=== PATIENT | female | born 1955 | race Caucasian/White ===

== ENCOUNTER 2019-03-30 07:36 | Day surgery (SDC) | payer MEDICARE, OTHER ==
[~2019-03-30] VITALS: Ht 167.6 cm; Wt 84.5 kg
[~2019-03-30 07:36] MED LIST: ACID REDUCER 1150 MG PO; AMIT10 PO; AZELASTINE137 MCG/0.; ESCI10 PO; GABA100 PO; HYDR1TAB94 PO; LEVSOD150 PO; PROM25 PO; SOMA350 MG PO; TRAM50 PO
== END 2019-03-30 10:48 | disposition home or self-care (01) ==
LOC: ORSCSDS 07:36
PROVIDERS: Otolaryngology
PROC: 08QRXZZ Repair Left Lower Eyelid, External Approach (ICD-10-PCS; principal; 2019-03-30 09:00)
DX: G51.0 Bell's palsy (principal); E03.9 Hypothyroidism, unspecified; M79.7 Fibromyalgia; Z79.899 Other long term (current) drug therapy
CPT/HCPCS: A9270-GY; J1100; J2250; J3010; J7120

== ENCOUNTER → 2021-01-14 | Outpatient (CLI) | payer MEDICARE, OTHER | END | disposition home or self-care (01) | LOC: LAB SHORT 11:27 | DX: D48.5 Neoplasm of uncertain behavior of skin (principal) | CPT/HCPCS: 88305 ==

== ENCOUNTER 2021-02-06 08:02 | Day surgery (SDC) | payer MEDICARE, OTHER ==
[~2021-02-06] VITALS: Ht 170.2 cm; Wt 78.7 kg
[2021-02-06] MEDS ORDERED: AMIT25 PO (08:20)
[2021-02-06] MEDS ORDERED: FAMO10 PO (08:21)
[2021-02-06] MEDS ORDERED: LEVSOD100 PO (08:21)
--- NOTE | 2021-02-06 08:34 | NUR ---
02/06/21 0834 Sivan Ríos CALL LIGHT WITHIN REACH
--- NOTE | 2021-02-06 10:05 | NUR ---
02/06/21 1005 CHAN ONEAL LUNGS CLEAR T/O GAUZE APPLIED OVER LEFT EYE- EYE CLOSED FIRST, THEN SECURED IN PLACE. THIS WAS PER DR. Brar PT IS UNABLE TO CLOSE HER EYE. CONFIRMED WITH THAT SHE IS ALLOWED TO APPLY OINTMENT INTO HER LEFT EYE TODAY AFTER HERE DROPS ARE INSERTED.
== END 2021-02-06 09:54 | disposition home or self-care (01) ==
LOC: ORSCSDS 08:02
PROVIDERS: Ophthalmology
PROC: 08RK3JZ Replacement of Left Lens with Synthetic Substitute, Percutaneous Approach (ICD-10-PCS; principal; 2021-02-06 09:15)
DX: H25.12 Age-related nuclear cataract, left eye (principal); F41.8 Other specified anxiety disorders; Z79.899 Other long term (current) drug therapy
CPT/HCPCS: J2001; J2250; J3010; J3301; J7040; V2632

== ENCOUNTER 2021-07-10 08:13 | Emergency (ER) | payer MEDICARE, OTHER ==
[~2021-07-10] VITALS: Ht 170.2 cm; Wt 78.0 kg
[~2021-07-10 08:13] MED LIST changes: +AMIT25 PO; +FAMO10 PO; +LEVSOD100 PO
[2021-07-10 08:44] LABS: BASOPHILS ABSOLUTE AUTO 0.04 K/mm3 (0.00-0.23); BASOPHILS PERCENT AUTO 2 % (0-2); EOSINOPHILS ABSOLUTE AUTO 0.28 K/mm3 (0.00-0.68); EOSINOPHILS PERCENT AUTO 11 % (0-6); Hematocrit 38.2 % (33.0-51.0); Hemoglobin 12.2 g/dL (11.5-16.0); IMMATURE GRAN PERCENT AUTO 0 % (0-1); LYMPHOCYTES ABSOLUTE AUTO 1.12 K/mm3 (0.84-5.20); LYMPHOCYTES PERCENT AUTO 43 % (21-46); MONOCYTES ABSOLUTE AUTO 0.36 K/mm3 (0.16-1.47); MONOCYTES PERCENT AUTO 14 % (4-13); Mean Corpuscular HGB 28.1 pg (26.0-34.0); Mean Corpuscular HGB Conc 31.9 g/dL (31.5-36.5); Mean Corpuscular Volume 88 fL (80-100); Mean Platelet Volume 10.5 fL (9.1-12.4); NEUTROPHILS ABSOLUTE AUTO 0.81 K/mm3 (1.96-9.15); NEUTROPHILS PERCENT AUTO 31 % (41-73); Platelet Count 211 K/mm3 (150-400); RDW Coefficient Variation 13.3 % (11.7-14.2); RDW Standard Deviation 42.9 fL (35.1-46.3); Red Blood Cell Count 4.34 M/mm3 (3.80-5.20); White Blood Cell Count 2.61 K/mm3 (4.00-11.30)
[2021-07-10 09:37] LABS: Alanine Aminotransfer (ALT/SGP 26 U/L (12-78); Albumin, Blood 3.4 g/dL (3.4-5.0); Albumin/Globulin Ratio 0.9 (0.8-1.8); Alk Phos 115 U/L (50-136); Anion Gap 5 mmol/L (6-16); Aspartate Aminotrans (AST/SGOT 18 U/L (12-37); Bilirubin, Total 0.5 mg/dL (0.1-1.0); Blood Urea Nitrogen 9 mg/dL (8-24); Bun/Creatinine Ratio 14.2 (12.0-20.0); CO2, Blood 26 mmol/L (21-32); Calcium, Blood 8.7 mg/dL (8.5-10.1); Chloride, Blood 110 mmol/L (98-108); Creatinine, Blood 0.64 mg/dL (0.40-1.00); Globulin, Blood 3.6 g/dL (2.2-4.0); Glomerular Filtration Rate >60 (60-); Glucose, Blood 113 mg/dL (70-99); Potassium, Blood 3.7 mmol/L (3.5-5.5); Sodium, Blood 141 mmol/L (136-145)
[2021-07-10 09:38] LABS: Troponin I <0.015 ng/mL (0.000-0.040)
== END 2021-07-10 10:55 | disposition home or self-care (01) ==
LOC: ER 08:13
PROVIDERS: Emergency Medicine
DX: R07.9 Chest pain, unspecified (principal); Z88.0 Allergy status to penicillin; Z88.5 Allergy status to narcotic agent; Z79.899 Other long term (current) drug therapy
CPT/HCPCS: 36415; 71045; 80053; 84484; 85025; 93005; 93010; 99285-25; J2405; J3010

== ENCOUNTER → 2023-01-28 | Outpatient (CLI) | payer MEDICARE, OTHER | LOC: PLD 08:27 | DX: N84.0 Polyp of corpus uteri (principal) ==

== ENCOUNTER 2023-02-22 06:14 | Day surgery (SDC) | payer MEDICARE, OTHER ==
[2023-02-22] VITALS (17 sets, daily range): BP systolic 121–188; BP diastolic 60–105
[~2023-02-22] VITALS: Ht 170.2 cm; Wt 89.8 kg
[2023-02-22] MEDS ORDERED: Inderal 20 mg T20 MG PO (06:40)
--- NOTE | 2023-02-22 07:32 | NUR ---
Ambulatory in Day Surgery WITH CANE. BALANCE PROBLEMS. Surgical site prepped with 2% Chlorhexidine cloth wipe. History, Chart, Medications and Allergies reviewed before start of procedure. Lungs clear T/O to Auscultation. Patient confirms NPO status and agrees with scheduled surgery. Pre-Op teaching done. Pt verbalizes understanding. JUAN LUIS AT BEDSIDE.
--- NOTE | 2023-02-22 12:04 | NUR ---
PT ARRIVED TO RM 228 FROM PACU AMBULATED TO RESTROOM AND VOIDED 500 ML YELLOW URINE. SMALL AMOUNT BLOOD NOTED ON TOILET PAPER AFTER WIPING. AMBULATED TO BED FROM RESTROOM. USED GAIT BELT AND PT'S CANE WHILE AMBULATING FOR SAFETY. PT REPORTS 8/10 ABDOMINAL AND R ARTHRITIC HIP PAIN. PROVIDED K PAD FOR COMFORT. LCA. RESPIRATIONS EASY ON 2L NC. 02 SATS 94%. LAP INCISIONS W/TISSUE ADHESIVE TO ABD CDI. PT HAS HX BELLS PALSY, L SIDED FACIAL DROOP NOTED.
[2023-02-22] MEDS ORDERED: IBUP800 PO (13:02)
[2023-02-22] MEDS ORDERED: MASOPHEN500 M2 PO (13:02)
[2023-02-22] MEDS ORDERED: OXYC5 PO (13:03)
--- NOTE | 2023-02-22 17:18 | NUR ---
DISCHARGE PT VERBALIZED DESIRE TO DISCHARGE. TOLERATING DIET. VOIDING. PAIN CONTROLLED PER PO PAIN MEDS. IVS DC'D, CATHETERS INTACT. REVIEWED DC PAPERWORK WITH PT; VERBALIZED UNDERSTANDING. PT ALREADY HAS PAIN MEDS AT HOME. VSS. GETTING DRESSED.
--- NOTE | 2023-02-22 17:28 | NUR ---
DISCHARGED PT LEFT UNIT IN WC W/POSSESSIONS AND DC PAPERWORK IN HAND TO MEET SPOUSE IN RIDE OUTSIDE.
== END 2023-02-22 17:26 | disposition home or self-care (01) ==
LOC: ORSCMMR 06:14 → ORD 07:30 → ORSCMMR 07:30 → SURS 11:11 → ORSCMMR 17:26
PROVIDERS: Obstetrics & Gynecology
PROC: 0UT6FZZ Resection of Left Fallopian Tube, Via Natural or Artificial Opening With Percutaneous Endoscopic Assistance (ICD-10-PCS; principal; 2023-02-22 07:30)
PROC: 0UT9FZZ Resection of Uterus, Via Natural or Artificial Opening With Percutaneous Endoscopic Assistance (ICD-10-PCS; principal; 2023-02-22 07:30)
PROC: 8E0W8CZ Robotic Assisted Procedure of Trunk Region, Via Natural or Artificial Opening Endoscopic (ICD-10-PCS; principal; 2023-02-22 07:30)
PROC: 0UT1FZZ Resection of Left Ovary, Via Natural or Artificial Opening With Percutaneous Endoscopic Assistance (ICD-10-PCS; principal; 2023-02-22 07:30)
DX: N95.0 Postmenopausal bleeding (principal); R93.9 Diagnostic imaging inconclusive due to excess body fat of patient; D25.9 Leiomyoma of uterus, unspecified; N80.03 Adenomyosis of the uterus; D3A.098 Benign carcinoid tumors of other sites; I10 Essential (primary) hypertension; K21.9 Gastro-esophageal reflux disease without esophagitis; E03.9 Hypothyroidism, unspecified; G51.0 Bell's palsy; Z79.899 Other long term (current) drug therapy
CPT/HCPCS: 58571; S2900; 88108; 88307; 88341; 88342; A9270; J1100; J1170; J1580; J2371; J2405; J2704; J3010; J7120

== ENCOUNTER 2024-05-18 08:01 | Day surgery (SDC) | payer MEDICARE, OTHER ==
[~2024-05-18] VITALS: Ht 170.2 cm; Wt 81.8 kg
[~2024-05-18 08:01] MED LIST changes: +Balanced Salt Epinephrine Irrigation Solution 500 mL IR SCH; +IBUP800 PO; +Inderal 20 mg T20 MG PO; +Lidocaine HCl/Pf 1% 5 ML VIAL XX SCH; +MASOPHEN500 M2 PO; +Moxifloxacin HCL 0.5 MG/0.1 ML 0.4MLSYR RIGHTEYE SCH; +OXYC5 PO; +PHENYLEPHRINE\\TROPICAMIDE\\TETRACAINE OPHTHALMIC DILATING SOLN RIGHTEYE PRN; +Povidone-Iodine 450 DROP/30 ML Solution RIGHTEYE SCH; +Triamcinolone Inj Susp 40 MG / ML 1ML Vial INJ SCH; +Triamcinolone Inj Susp 40 MG / ML 1ML Vial ONE
[2024-05-18] MEDS ORDERED: Midazolam HCl 1MG / ML 2ML Vial ONE (08:30)
[2024-05-18 09:54] VITALS: BP 132/83
== END 2024-05-18 09:49 | disposition home or self-care (01) ==
LOC: ORSCSDS 08:01
PROVIDERS: Ophthalmology
PROC: 08RJ3JZ Replacement of Right Lens with Synthetic Substitute, Percutaneous Approach (ICD-10-PCS; principal; 2024-05-18 09:30)
DX: H25.811 Combined forms of age-related cataract, right eye (principal); I10 Essential (primary) hypertension; G51.0 Bell's palsy; K21.9 Gastro-esophageal reflux disease without esophagitis; H40.9 Unspecified glaucoma; Z79.899 Other long term (current) drug therapy
CPT/HCPCS: J2250; J3301; V2632

== ENCOUNTER → 2024-07-30 | Outpatient (CLI) | payer MEDICARE, OTHER ==
[~2024-07-30] MED LIST changes: -Balanced Salt Epinephrine Irrigation Solution 500 mL IR SCH; -Lidocaine HCl/Pf 1% 5 ML VIAL XX SCH; -Moxifloxacin HCL 0.5 MG/0.1 ML 0.4MLSYR RIGHTEYE SCH; -PHENYLEPHRINE\\TROPICAMIDE\\TETRACAINE OPHTHALMIC DILATING SOLN RIGHTEYE PRN; -Povidone-Iodine 450 DROP/30 ML Solution RIGHTEYE SCH; -Triamcinolone Inj Susp 40 MG / ML 1ML Vial INJ SCH; -Triamcinolone Inj Susp 40 MG / ML 1ML Vial ONE
== END ==
LOC: LAB SHORT 12:32 → LAB 12:32
DX: N39.0 Urinary tract infection, site not specified (principal)
CPT/HCPCS: 87086